=== PATIENT | female | born 2000 | race Two or more races ===

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

== ENCOUNTER 2022-11-19 14:00 | Emergency (ER) | payer BC, OTHER ==
[2022-11-19 14:04] VITALS: BP 138/91; PULSE 88; RESP 18; TEMP 98.3; BMI 25.7
[2022-11-19] MEDS ORDERED: KETOROLAC TROMETHAMINE 30 MG/1 ML VIAL IM ONE (15:19)
[2022-11-19] MEDS ORDERED: CYCLOBENZAPRINE HCL 10 MG TABLET (FP) PO ONE (15:19)
[2022-11-19] MEDS ORDERED: LIDOCAINE 5% TOPICAL PATCH TP ONE (15:19)
[2022-11-19] MEDS ORDERED: ACETAMINOPHEN 500 MG TABLET (FP) PO ONE (15:19)
[2022-11-19] MEDS ORDERED: LIDOCAINE 5% TOPICAL PATCH ONE (15:20)
[2022-11-19] MEDS ORDERED: CYCLOBENZAPRINE HCL 10 MG TABLET (FP) ONE (15:20)
[2022-11-19] MEDS ORDERED: ACETAMINOPHEN 500 MG TABLET (FP) ONE (15:21)
[2022-11-19] MEDS ORDERED: KETOROLAC TROMETHAMINE 30 MG/1 ML VIAL ONE (15:21)
[2022-11-19] MEDS ORDERED: LIDOCAINE PATCH REMOVAL MC SCH (22:00)
== END 2022-11-19 15:49 | disposition home or self-care (01) ==
LOC: JERFT 14:00
PROC: 3E0233Z Introduction of Anti-inflammatory into Muscle, Percutaneous Approach (ICD-10-PCS; principal; 2022-11-19)
DX: M54.50 Low back pain, unspecified (principal); M62.830 Muscle spasm of back; V49.40XA Driver injured in collision with unspecified motor vehicles in traffic accident, initial encounter; Y93.I9 Activity, other involving external motion
CPT/HCPCS: 99284-25

== ENCOUNTER 2023-11-11 23:55 | Emergency (ER) | payer SELFPAY ==
[2023-11-12 00:05] VITALS: BP 139/79; PULSE 73; RESP 18; TEMP 98.1; BMI 24.9
== END 2023-11-12 00:28 | disposition home or self-care (01) ==
LOC: FER 23:55
DX: J02.9 Acute pharyngitis, unspecified (principal); R59.1 Generalized enlarged lymph nodes; Z20.822 Contact with and (suspected) exposure to COVID-19
CPT/HCPCS: 0241U-QW; 36415; 86308; 99283-25